=== PATIENT | male | born 1950 | race Caucasian/White ===

== ENCOUNTER 2019-05-16 14:18 | Emergency (ER) | payer OTHER ==
--- NOTE | 2019-05-16 15:06 | EDM.PDOC ---
ED HPI GENERAL MEDICAL PROBLEM - General Chief Complaint: Fever Stated Complaint: FLU SX Time Seen by Provider: 05/16/19 14:40 Source of Information: Reports: Patient, Provider (Sierra Krishnan NP from [facility]), RN Notes Reviewed History Limitations: Reports: No Limitations - History of Present Illness INITIAL COMMENTS - FREE TEXT/NARRATIVE: Patient is a 68-year-old male who presents to the ED for further evaluation. He notes he was evaluated at the [facility] this morning, and was found to have some nitrites, and blood in his urine. Patient notes that he does self catheterize. He does have an indwelling Lucero in place, and replaces Sunday night, as he noticed some bleedings or clots and felt some fullness. He changed the catheter with little to no difficulty. He states that his urine has returned to normal color over the course of the few days. There are no visible clots noted. Patient states that he was having some allover body aches , chills at home on Sunday, he did not have a thermometer at home so did not take his temperature. The patient's temperature at time of triage is 100.9 F. He notes that it was 98 F at the [facility] prior to arrival to the ED. He was sent to this ER for further blood work as the [facility] could not get the labs done in time before end of . - Related Data Allergies Allergy/AdvReac Type Severity Reaction Status Date / Time No Known Allergies Allergy Verified 11/22/18 16:31 Home Meds: Home Meds Finasteride [Proscar] 5 mg PO DAILY 01/22/14 [History] Tamsulosin HCl [Flomax] 0.8 mg PO DAILY 01/22/14 [History] Aspirin 325 mg PO DAILY 09/21/14 [History] Saw [place] 3 cap PO DAILY 09/21/14 [History] levoFLOXacin [Levaquin] 500 mg PO DAILY #10 tab 05/16/19 [Rx] Past Medical History Genitourinary History: Reports: BPH, Prostate Disorder, Other (See Below) Other Genitourinary History: lucero catheter - Past Surgical History Male Surgical History: Reports: Other (See Below) Other Male Surgeries/Procedures: stent in kidney, kidney fracture Musculoskeletal Surgical History: Reports: Amputation, Shoulder Surgery Social & Family History - Family History Family Medical History: Noncontributory - Tobacco Use Smoking Status *Q: Never Smoker Second Hand Smoke Exposure: No - Caffeine Use Caffeine Use: Reports: Tea - Recreational Drug Use Recreational Drug Use: No ED ROS GENERAL - Review of Systems Review Of Systems: See Below Constitutional: Reports: Fever. Denies: Chills, Decreased Appetite Respiratory: Denies: Shortness of Breath Cardiovascular: Denies: Chest Pain GI/Abdominal: Denies: Abdominal Pain, Nausea, Vomiting : Reports: Hematuria (noticed on sunday, no obvious clots today). Denies: Dysuria, Frequency, Urgency Neurological: Denies: Confusion ED EXAM, RENAL/ - Physical Exam Exam: See Below Exam Limited By: No Limitations General Appearance: Alert, WD/WN, No Apparent Distress Eye Exam: Bilateral Eye: EOMI, Normal Inspection, PERRL Throat/Mouth: Normal Inspection, Normal Lips, Normal Teeth, Normal Gums, Normal Oropharynx, Normal Voice, No Airway Compromise Head: Atraumatic Neck: Normal Inspection Respiratory/Chest: No Respiratory Distress, Lungs Clear, Normal Breath Sounds, No Accessory Muscle Use, Chest Non-Tender Cardiovascular: Normal Peripheral Pulses, Regular Rate, Rhythm, No Murmur GI/Abdominal: Normal Bowel Sounds, Soft, Non-Tender, No Distention, No Mass (Male) Exam: Deferred (pt notes no redness/drainage) Extremities: Normal Inspection, Normal Capillary Refill Neurological: Alert, Oriented, Normal Cognition, No Motor/Sensory Deficits Psychiatric: Normal Affect, Normal Mood Skin Exam: Warm, Dry, Intact, Normal Color, No Rash Course - Vital Signs Last Recorded V/S: Last Vital Signs Temp 100.9 F H 05/16/19 14:31 Pulse 91 05/16/19 14:31 Resp 20 05/16/19 14:31 BP 123/101 H 05/16/19 14:31 Pulse Ox 100 05/16/19 14:31 - Orders/Labs/Meds Orders: Active Orders 24 hr Category Date Time Status CULTURE URINE [RM] Stat Lab 05/16/19 16:30 Labs: Laboratory Tests 05/16/19 05/16/19 05/16/19 Range/Units 14:55 14:55 15:45 WBC 8.81 (4.23-9.07) K/mm3 RBC 4.12 L (4.63-6.08) M/mm3 Hgb 11.7 L D (13.7-17.5) gm/dl Hct 36.1 L (40.1-51.0) % MCV 87.6 D (79.0-92.2) fl MCH 28.4 (25.7-32.2) pg MCHC 32.4 (32.2-35.5) g/dl RDW Std Deviation 39.9 (35.1-43.9) fL Plt Count 81 L D (163-337) K/mm3 MPV 10.7 (9.4-12.3) fl Neutrophils % (Manual) 88 H (40-60) % Band Neutrophils % 0 (0-10) % Lymphocytes % (Manual) 10 L (20-40) % Atypical Lymphs % 0 % Monocytes % (Manual) 2 (2-10) % Eosinophils % (Manual) 0 L (0.8-7.0) % Basophils % (Manual) 0 L (0.2-1.2) Platelet Estimate Decreased Plt Morphology Comment See note RBC Morph Comment Normal Sodium 135 L (136-145) mEq/L Potassium 4.3 D (3.5-5.1) mEq/L Chloride 101 (98-107) mEq/L Carbon Dioxide 22 D (21-32) mEq/L Anion Gap 16.3 H (5-15) BUN 44 H D (7-18) mg/dL Creatinine 2.2 H D (0.7-1.3) mg/dL Est Cr Clr Drug Dosing 31.52 mL/min Estimated GFR (MDRD) 30 (>60) mL/min BUN/Creatinine Ratio 20.0 H (14-18) Glucose 108 (80-115) mg/dL Calcium 9.4 (8.5-10.1) mg/dL Total Bilirubin 0.5 (0.2-1.0) mg/dL AST 11 L (15-37) U/L ALT 25 (16-63) U/L Alkaline Phosphatase 73 (46-116) U/L Total Protein 7.2 (6.4-8.2) g/dl Albumin 3.4 (3.4-5.0) g/dl Globulin 3.8 gm/dL Albumin/Globulin Ratio 0.9 L (1-2) Urine Color Yellow (Yellow) Urine Appearance Slt cloudy H (Clear) Urine pH 6.0 (5.0-8.0) Ur Specific [place]ter 1.020 (1.005-1.030) Urine Protein 2+ H (Negative) Urine Glucose (UA) Negative (Negative) Urine Ketones Negative (Negative) Urine Occult Blood 2+ H (Negative) Urine Nitrite Positive H (Negative) Urine Bilirubin Negative (Negative) Urine Urobilinogen 1.0 (0.2-1.0) Ur Leukocyte Esterase 2+ H (Negative) Urine RBC 5-10 H (0-5) /hpf Urine WBC 40-50 H (0-5) /hpf Ur Squamous Epith Cells 0-5 (0-5) /hpf Urine Bacteria Moderate H (FEW) /hpf Urine Mucus Few (FEW) /hpf - Re-Assessments/Exams Free Text/Narrative Re-Assessment/Exam: 05/16/19 15:05 Patient presents to the ED for evaluation of a possible UTI with Lucero in place. I did reorder a urinalysis to be obtained, CBC, CMP, and influenza screen at today's visit. I did look at the notes provided from Sierra Krishnan at the [facility], and it does appear that he is suffering from a UTI, as the nitrites were positive. 05/16/19 15:49 Patient's metabolic panel is back, and demonstrates a creatinine of 2.2, BUN elevated at 44, GFR decreased at 30. I did call the [facility] in [place] for his most recent metabolic panel, and they state that they had his most recent creatinine in January 2019 at 1.9. His urinalysis is still pending at this time. Departure - Departure Time of Disposition: 16:43 Disposition: Home, Self-Care 01 Condition: Fair Clinical Impression: UTI (urinary tract infection) due to urinary indwelling Lucero catheter Qualifiers: Indwelling urinary catheter type: indwelling urethral catheter Encounter type: initial encounter Qualified Code(s): T83.511A - Infection and inflammatory reaction due to indwelling urethral catheter, initial encounter; N39.0 - Urinary tract infection, site not specified - Discharge Information *PRESCRIPTION DRUG MONITORING PROGRAM REVIEWED*: No *COPY OF PRESCRIPTION DRUG MONITORING REPORT IN PATIENT PARAS: No Prescriptions: levoFLOXacin [Levaquin] 500 mg PO DAILY #10 tab Instructions: Urinary Tract Infection, Adult, [id number] Referrals: Diya Pineda MD [Primary Care Provider] - Forms: ED Department Discharge Additional Instructions: You have been evaluated in the ED for your urinary symptoms. Your urinalysis was consistent with an acute urinary tract infection. Your urine was sent for culture, and you will be notified if you should need a change in your antibiotic. This may take 48-72 hours to get results. You have been given a prescription for Levofloxacin, 500 mg 1 tablet daily for 10 days. This has been electronically sent to the [facility] pharmacy located in the [facility] store. Please increase your oral fluid intake and try to stay adequately hydrated. Please return to the ED if your symptoms change or worsen. Sepsis Event Note - Evaluation Sepsis Screening Result: Possible Sepsis Risk - Focused Exam Vital Signs: Vital Signs Temp Pulse Resp BP Pulse Ox 05/16/19 14:31 100.9 F H 91 20 123/101 H 100 Date Exam was Performed: 05/16/19 Time Exam was Performed: 16:43 - My Orders Last 24 Hours: My Active Orders 05/16/19 16:30 CULTURE URINE [RM] Stat - Assessment/Plan Last 24 Hours: My Active Orders 05/16/19 16:30 CULTURE URINE [RM] Stat
[2019-05-16 17:15] VITALS: BP 116/76; PULSE 88
== END 2019-05-16 17:00 | disposition home or self-care (01) ==
LOC: JD.ED 14:18
DX: T83.511A Infection and inflammatory reaction due to indwelling urethral catheter, initial encounter (principal); N39.0 Urinary tract infection, site not specified; Z79.82 Long term (current) use of aspirin; Z79.899 Other long term (current) drug therapy
CPT/HCPCS: 36415; 80053; 81001; 85007; 85027; 87086; 87088; 87186; 87804; 99283

== ENCOUNTER 2024-03-21 12:47 | Emergency (ER) | payer OTHER ==
[2024-03-21 14:36] VITALS: BP 114/78; PULSE 72
== END 2024-03-21 14:35 | disposition home or self-care (01) ==
LOC: JD.ED 12:47
DX: R05.9 Cough, unspecified (principal); Z79.82 Long term (current) use of aspirin; Z79.899 Other long term (current) drug therapy; X00.1XXA Exposure to smoke in uncontrolled fire in building or structure, initial encounter
CPT/HCPCS: 71045; 71045-26; 99283

== ENCOUNTER 2024-04-12 12:06 | Emergency (ER) | payer OTHER ==
[2024-04-12] MEDS ORDERED: Sodium Chloride 0.9% 10 ML Syringe FLUSH PRN (12:18)
[2024-04-12 12:53] LABS: BASOPHILS PERCENT AUTO 0.2 % (0.0-1.0); EOSINOPHILS ABSOLUTE AUTO 0.3 K/mm3 (0.0-0.4); EOSINOPHILS PERCENT AUTO 4.1 % (0.0-6.0); HEMATOCRIT 20.4 % (42.0-52.0); IMMATURE GRAN ABSOLUTE AUTO 0.03 K/mm3 (0.00-0.05); IMMATURE GRAN PERCENT AUTO 0.5 % (0.0-0.4); LYMPHOCYTES ABSOLUTE AUTO 0.9 K/mm3 (1.0-4.8); LYMPHOCYTES PERCENT AUTO 15.3 % (24.0-44.0); MEAN CORPUSCULAR HEMOGLOBIN 23.6 pg (28.0-32.0); MEAN CORPUSCULAR HGB CONC 29.9 g/dl (32.0-36.0); MEAN CORPUSCULAR VOLUME 78.8 fl (83.0-99.0); MEAN PLATELET VOLUME 11.2 fl (9.4-12.4); MONOCYTES ABSOLUTE AUTO 0.6 K/mm3 (0.0-0.8); MONOCYTES PERCENT AUTO 9.5 % (0.0-8.0); NEUTROPHILS ABSOLUTE AUTO 4.3 K/mm3 (1.8-7.7); NEUTROPHILS PERCENT AUTO 70.4 % (41.0-71.0); PLATELET COUNT,PLT 146 K/mm3 (150-400); RED BLOOD CELL COUNT 2.59 M/mm3 (4.52-5.90); WHITE BLOOD CELL COUNT,WBC 6.13 K/mm3 (3.9-11.3)
[2024-04-12 13:09] LABS: HEMOGLOBIN 6.1 gm/dl (14.0-18.0)
[2024-04-12 13:10] LABS: INR 1.02; PROTHROMBIN TIME 10.8 SECONDS (9.7-12.0)
[2024-04-12 13:11] LABS: PTT,PARTIAL THROMBOPLSTIN TIME 24.7 SECONDS (21.7-31.4)
[2024-04-12 13:14] LABS: A/G RATIO 0.6 (1-2); ALBUMIN 2.5 g/dl (3.4-5.0); ANION GAP 18.5 (5-15); BILIRUBIN TOTAL 0.2 mg/dL (0.2-1.0); BUN/CREATININE RATIO 17.7 (14-18); C-REACTIVE PROTEIN 5.35 mg/dL (<0.30); CALCIUM 9.2 mg/dL (8.5-10.1); CREATININE 4.7 mg/dL (0.7-1.3); EST CRCL DRUG DOSING (CG) 14.21 mL/min; MAGNESIUM 2.9 mg/dL (1.8-2.4); POTASSIUM,K 4.5 mEq/L (3.5-5.1); PROTEIN TOTAL,TP 6.5 g/dl (6.4-8.2)
[2024-04-12] MEDS: Sodium Chloride 0.9% 1,000 ML IV SCH (13:21)
[2024-04-12 13:22] LABS: APPEARANCE,URINE CLOUDY (Clear); BILIRUBIN,URINE NEGATIVE (Negative); COLOR,URINE YELLOW (Yellow); GLUCOSE,URINE NEGATIVE (Negative); KETONES,URINE NEGATIVE (Negative); LEUKOCYTE ESTERASE,URINE 3+ (Negative); NITRITE,URINE POSITIVE (Negative); OCCULT BLOOD,URINE 2+ (Negative); PROTEIN,URINE 3+ (Negative); UROBILINOGEN,URINE 0.2 (0.2-1.0)
[2024-04-12 14:05] LABS: BACTERIA,URINE MODERATE /hpf (FEW); MUCUS,URINE FEW /hpf (FEW); SQUAMOUS EPITHELIAL CELLS,UR 0-5 /hpf (0-5); WBC,URINE 20-30 /hpf (0-5)
[2024-04-12] MEDS: Sodium Chloride 0.9% 1,000 ML IV ONE (14:41)
[2024-04-12] MEDS: cefTRIAXone 2 GM in Sodium Chloride 0.9% 100 ML IV ONE (15:43)
[2024-04-12 18:47] VITALS: BP 109/62; PULSE 74
== END 2024-04-12 18:55 ==
LOC: JD.ED 12:06 → UNDOADMIN 14:16 → JD.MS 14:16 → JD.ED 18:55
DX: D64.89 Other specified anemias (principal); N17.9 Acute kidney failure, unspecified; N20.0 Calculus of kidney; N39.0 Urinary tract infection, site not specified; Z79.899 Other long term (current) drug therapy
CPT/HCPCS: 36415; 36430; 51702; 74176; 80053; 81001; 83605; 83735; 85025; 85610; 85730; 86140; 86850; 86900; 86901; 86922; 87040; 87086; 93005; 96361; 96365; 99285; J0696; J7030; P9016; 93010; 99284